=== PATIENT | male | born 1955 | race African-American/Black ===

== ENCOUNTER 2018-11-13 11:45 | Emergency (ER) | payer OTHER ==
[~2018-11-13] VITALS: Ht 170.2 cm; Wt 68.0 kg
--- NOTE | 2018-11-13 12:08 | NUR ---
Hives to upper back x 3 days, TOOK BENADRYL, SOME TONGUE SWELLING BUT -SOB. ALSO SOME HIVES ON RIGHT ARM. PT IS AOX4, AMB, VSS, RR EVEN AND UNLABORED. DENIES PAIN, DIZZINESS, WEAKNESS, N/V. SKIN WARM, DRY, INTACT. NO ACUTE DISTRESS NOTED. AT BEDSIDE. READY FOR EVAL.
[2018-11-13] MEDS ORDERED: FAMOTIDINE (20 MG) 20 MG TABLET ONE (12:52)
[2018-11-13] MEDS ORDERED: predniSONE 20 MG TABLET ONE (12:52)
[2018-11-13] MEDS ORDERED: diphenhydrAMINE HCL 25 MG CAPSULE ONE (12:52)
--- NOTE | 2018-11-13 12:57 | NUR ---
Patient discharged to home in stable condition. Written and verbal after care instructions given. Patient verbalizes understanding of instruction.
[2018-11-13] MEDS ORDERED: DIPHENHYDRAMINE HCL 12.5 MG/5 ML UDC PO ONE (13:00)
[2018-11-13] MEDS ORDERED: predniSONE 20 MG TABLET PO ONE (13:00)
[2018-11-13] MEDS ORDERED: FAMOTIDINE (20 MG) 20 MG TABLET PO ONE (13:00)
[2018-11-13 13:14] VITALS: BP 140/78
== END 2018-11-13 12:57 | disposition home or self-care (01) ==
LOC: ER 12:00
DX: L50.9 Urticaria, unspecified (principal); M19.90 Unspecified osteoarthritis, unspecified site; F17.200 Nicotine dependence, unspecified, uncomplicated
CPT/HCPCS: Q0163

== ENCOUNTER 2019-04-02 16:41 | Emergency (ER) | payer OTHER ==
[~2019-04-02] VITALS: Ht 165.1 cm; Wt 68.0 kg
--- NOTE | 2019-04-02 17:00 | NUR ---
BIB FOR SUDDEN LOSS OF LEFT EYE VISION, NOTED SINCE LAST NIGHT, RIGHT EYE 20/20; LEFT EYE - CANNOT EVALUATE FULLY, HE CAN'T SEE. TO ER BED 11, HOOKED TO MONITOR, CHANGED TO GOWN, PROVIDED W WARM BLANKET, AWAITING MD SHARPE.
[2019-04-02] MEDS ORDERED: FLUORESCEIN SODIUM OPHTH 1 EA STRIP ONE (17:10)
[2019-04-02] MEDS ORDERED: TETRACAINE HCL/PF 0.5% UD 2 ML BOTTLE ONE (17:10)
--- NOTE | 2019-04-02 17:16 | NUR ---
DR SALDANA AT BEDSIDE
--- NOTE | 2019-04-02 17:35 | NUR ---
CALLED [facility], SPOKE WITH COORDINATOR GRAY, SHE IS GOING TO GIVE PT INFO TO NURSING [employer]MENT OPERATOR AND WE SHOULD RECEIVE A CALL SHORTLY.
--- NOTE | 2019-04-02 19:21 | NUR ---
Patient discharged to home in stable condition. Written and verbal after care instructions given. Patient verbalizes understanding of instruction.
[2019-04-02 19:22] VITALS: BP 148/91
== END 2019-04-02 19:23 | disposition home or self-care (01) ==
LOC: ER 16:53
DX: H43.12 Vitreous hemorrhage, left eye (principal); M19.90 Unspecified osteoarthritis, unspecified site; F17.200 Nicotine dependence, unspecified, uncomplicated